=== PATIENT | male | born 1975 | race Caucasian/White ===

== ENCOUNTER 2018-01-08 22:30 | Emergency (ER) | payer OTHER ==
[~2018-01-08] VITALS: Ht 175.3 cm; Wt 91.0 kg
[~2018-01-08 22:30] MED LIST: AMITRIPTYLINE H50 MG PO; BACTRIM,SEPT1 TABLET PO; BENTYL10 MG PO; BENTYL20 MG PO; CARISOPRODOL350 MG; CIPRO; COLACE100 MG PO; ENDOCET 5-3251 EACH; EXCEDRIN MIGRA1 EACH PO; EYE DROP TEARS15 ML BOTH EYES; FIORICET 50-301 EACH PO; FIORICET,ESG1 TABLET PO; FLEET ENEMA EX230 ML PR; FLEXERIL5 MG PO; FLOMAX0.4 M1; FLOMAX0.4 MG PO; GABAPENTIN300 MG PO; HYDROCODON-ACE1 EAC7 PO; KEFLEX500 MG PO; LORTAB 5-325 M1 EACH PO; LYRICA150 MG PO; LYRICA50 MG PO; MACROBID100 MG PO; MILK OF MAGN PO; NEURONTIN400 MG PO; NO MEDS; NOHOMEMEDS; NORCO 5/3251 TABLET PO; PAIN RELIEVING TP; PERCOCET 5/31 TABLET PO; PHENERGAN PO; PROMETHAZINE HC25 M1 PO; PROMETHAZINE12.5 M1; PROPRANOLOL HCL20 MG PO; SOMA350 MG PO; TYLENOL EXTRA500 MG PO; TYLENOL325 M1; ULTRAM50 MG PO; ZANAFLEX4 M1 PO; ZOFRAN ODT4 MG PO; ZOFRAN ODT8 MG PO; ZOFRAN4 MG PO
[2018-01-08 23:12] LABS: HEMATOCRIT 39.7 % (38.0-50.0); MCH 30.7 PG (29.0-34.0); MCHC 32.7 G/DL (30.0-36.0); MCV 93.6 FL (86-99); PLATELET COUNT 277 K/uL (156-360); RBC DIS.WIDTH-CV 14.1 % (11.8-14.6); RBC DIS.WIDTH-SD 48.9 % (39-53); RED BLOOD COUNT 4.24 M/uL (4.00-5.50); WHITE BLOOD COUNT 11.9 K/uL (4.1-10.2)
[2018-01-08 23:21] LABS: CHLORIDE 111 mEq/L (99-109); POTASSIUM 4.4 mEq/L (3.7-5.4); SODIUM 142 mEq/L (136-147)
[2018-01-08 23:22] LABS: GLUCOSE 94 mg/dL (70-99)
[2018-01-08 23:26] LABS: GFR ESTIMATE (CALCULATED) > 59 mL/min/ (58.99-99999)
[2018-01-08 23:27] LABS: UREA NITROGEN (BUN) 9 mg/dL (9-23)
[2018-01-09 01:25] LABS: APPEARANCE CLEAR ((CLEAR)); BILIRUBIN NEGATIVE; BLOOD LARGE; COLOR STRAW ((YELLOW)); GLUCOSE (STRIP) NEGATIVE; KETONES NEGATIVE; LEUKOCYTES NEGATIVE; NITRITE NEGATIVE; PROTEIN (STRIP) NEGATIVE; SPECIFIC GRAVITY 1.012 (1.000-1.030); UROBILINOGEN 0.2 MG/DL (0.2-1.0)
[2018-01-09 01:28] LABS: BACTERIA RARE /HPF; EPITHELIAL CELLS RARE /HPF; MUCUS TRACE /LPF; UCUL ADDED? NO; WHITE BLOOD CELLS 0-5 /HPF (0-5)
[2018-01-09] MEDS ORDERED: TRAMADOL HCL50 MG PO (02:01)
[2018-01-09 02:16] VITALS: BP 102/91
== END 2018-01-09 02:17 | disposition home or self-care (01) ==
LOC: EME 22:30
DX: N20.0 Calculus of kidney (principal); J84.10 Pulmonary fibrosis, unspecified; J45.909 Unspecified asthma, uncomplicated; E05.90 Thyrotoxicosis, unspecified without thyrotoxic crisis or storm; G43.909 Migraine, unspecified, not intractable, without status migrainosus; F17.200 Nicotine dependence, unspecified, uncomplicated; Z87.442 Personal history of urinary calculi; Z90.49 Acquired absence of other specified parts of digestive tract; Z95.9 Presence of cardiac and vascular implant and graft, unspecified; Z91.013 Allergy to seafood; Z88.1 Allergy status to other antibiotic agents; Z88.2 Allergy status to sulfonamides; Z88.8 Allergy status to other drugs, medicaments and biological substances
CPT/HCPCS: 74176; 80048; 81003; 85027; 99281; 99284; J2405; J3010; J7030